=== PATIENT | female | born 1960 | race Caucasian/White ===

== ENCOUNTER → 2016-10-21 | Outpatient (CLI) | payer BC, OTHER ==
--- NOTE | 2016-10-21 08:32 | CT ---
EXAMINATION TYPE: CT soft tissue neck w con DATE OF EXAM: 10/21/2016 8:14 AM COMPARISON: NONE HISTORY: Rt neck swelling CT DLP: 521 mGycm Automated exposure control for dose reduction was used. CONTRAST: CT scan of the neck is performed following with IV Contrast, patient injected with 100 mL of Omnipaqu e 300. Axial images are obtained, coronal and sagittal reformatted images are reviewed. FINDINGS: Nasopharynx is symmetric. There are changes of chronic sinusitis. Arterial palatine fossa is symmetric. Oropharynx symmetric. Dental artifact does limit the exam. Deidra sly the submandibular and parotid glands have a normal appearance. There is no soft tissue edema. Thyroid enhances normally. The lung apices are clear. No pathologic adenopathy. The vocal cords have a normal appearance. IMPRESSION: 1. No acute process
== END | disposition home or self-care (01) ==
LOC: RADCTMAIN 07:31
PROVIDERS: ATTEND Otolaryngology
DX: R22.1 Localized swelling, mass and lump, neck (principal)
CPT/HCPCS: 70491; Q9967

== ENCOUNTER → 2016-12-17 | Outpatient (CLI) | payer BC, OTHER ==
--- NOTE | 2016-12-18 08:22 | MM ---
Reason for exam: screening (asymptomatic). Last mammogram was performed 1 year ago. History: Patient is postmenopausal. Benign left breast needle localization of both breasts, August 25, 2013. Cancelled Left Mammotome of the left breast, August 05, 2013. Physical Findings: A clinical breast exam by your physician is recommended on an annual basis and results should be correlated with mammographic findings. MG Screening Mammo w CAD Bilateral CC and MLO view(s) were taken. Prior study comparison: December 06, 2015, bilateral MG screening mammo w CAD. August 10, 2014, bilateral MG screening mammo w CAD. The breast tissue is heterogeneously dense. This may lower the sensitivity of mammography. There is no discrete abnormality. No significant changes when compared with prior studies. ASSESSMENT: Negative, BI-RAD 1 RECOMMENDATION: Routine screening mammogram of both breasts in 1 year.
== END | disposition home or self-care (01) ==
LOC: RADMAMWWP 07:38
PROVIDERS: ATTEND Obstetrics & Gynecology
DX: Z12.31 Encounter for screening mammogram for malignant neoplasm of breast (principal)

== ENCOUNTER → 2017-12-29 | Outpatient (CLI) | payer BC, OTHER ==
--- NOTE | 2017-12-31 10:10 | MM ---
Reason for exam: screening (asymptomatic). Last mammogram was performed 1 year ago. History: Patient is postmenopausal. Benign left breast needle localization of both breasts, August 25, 2013. Cancelled Left Mammotome of the left breast, August 05, 2013. Physical Findings: A clinical breast exam by your physician is recommended on an annual basis and results should be correlated with mammographic findings. MG Screening Mammo w CAD Bilateral CC and MLO view(s) were taken. Prior study comparison: December 17, 2016, bilateral MG screening mammo w CAD. December 06, 2015, bilateral MG screening mammo w CAD. The breast tissue is heterogeneously dense. This may lower the sensitivity of mammography. No significant changes when compared with prior studies. ASSESSMENT: Negative, BI-RAD 1 RECOMMENDATION: Routine screening mammogram of both breasts in 1 year.
== END | disposition home or self-care (01) ==
LOC: RADMAMWWP 13:31
PROVIDERS: ATTEND Obstetrics & Gynecology
DX: Z12.31 Encounter for screening mammogram for malignant neoplasm of breast (principal)
CPT/HCPCS: 77067

== ENCOUNTER → 2019-01-12 | Outpatient (CLI) | payer BC, OTHER ==
--- NOTE | 2019-01-12 10:19 | MM ---
Reason for exam: screening (asymptomatic). Last mammogram was performed 1 year ago. History: Patient is postmenopausal. Benign left breast needle localization of both breasts, August 25, 2013. Cancelled Left Mammotome of the left breast, August 05, 2013. Physical Findings: A clinical breast exam by your physician is recommended on an annual basis and results should be correlated with mammographic findings. MG Screening Mammo w CAD Bilateral CC and MLO view(s) were taken. Prior study comparison: December 29, 2017, bilateral MG screening mammo w CAD. December 17, 2016, bilateral MG screening mammo w CAD. The breast tissue is heterogeneously dense. This may lower the sensitivity of mammography. No suspicious abnormality. No significant changes when compared with prior studies. ASSESSMENT: Negative, BI-RAD 1 RECOMMENDATION: Routine screening mammogram of both breasts in 1 year.
== END | disposition home or self-care (01) ==
LOC: RADMAMWWP 07:19
PROVIDERS: ATTEND Obstetrics & Gynecology
DX: Z12.31 Encounter for screening mammogram for malignant neoplasm of breast (principal)
CPT/HCPCS: 77067

== ENCOUNTER → 2020-03-22 | Outpatient (CLI) | payer BC, OTHER ==
--- NOTE | 2020-03-24 09:28 | MM ---
Reason for exam: screening (asymptomatic). Last mammogram was performed 1 year and 2 months ago. History: Patient is postmenopausal. Benign left breast needle localization of both breasts, August 25, 2013. Cancelled Left Mammotome of the left breast, August 05, 2013. Physical Findings: A clinical breast exam by your physician is recommended on an annual basis and results should be correlated with mammographic findings. MG Screening Mammo w CAD Bilateral CC and MLO view(s) were taken. Prior study comparison: January 12, 2019, bilateral MG screening mammo w CAD. December 29, 2017, bilateral MG screening mammo w CAD. The breast tissue is heterogeneously dense. This may lower the sensitivity of mammography. Focal asymmetry left upper outer quadrant. No significant changes when compared with prior studies. ASSESSMENT: Benign, BI-RAD 2 RECOMMENDATION: Routine screening mammogram of both breasts in 1 year.
== END | disposition home or self-care (01) ==
LOC: RADMAMWWP 09:30
PROVIDERS: ATTEND Obstetrics & Gynecology
DX: Z12.31 Encounter for screening mammogram for malignant neoplasm of breast (principal)
CPT/HCPCS: 77067

== ENCOUNTER → 2021-05-02 | Outpatient (CLI) | payer BC, OTHER ==
--- NOTE | 2021-05-04 11:40 | MM ---
Reason for exam: screening (asymptomatic). Last mammogram was performed 1 year and 1 month ago. History: Patient is postmenopausal. Benign left breast needle localization of both breasts, August 25, 2013. Cancelled Left Mammotome of the left breast, August 05, 2013. Physical Findings: A clinical breast exam by your physician is recommended on an annual basis and results should be correlated with mammographic findings. MG Screening Mammo w CAD Bilateral CC and MLO view(s) were taken. Prior study comparison: March 22, 2020, bilateral MG screening mammo w CAD. January 12, 2019, bilateral MG screening mammo w CAD. The breast tissue is heterogeneously dense. This may lower the sensitivity of mammography. There is chronic nodularity in the left breast. No significant changes when compared with prior studies. ASSESSMENT: Benign, BI-RAD 2 RECOMMENDATION: Routine screening mammogram of both breasts in 1 year.
== END | disposition home or self-care (01) ==
LOC: RADMAMWWP 16:11
PROVIDERS: ATTEND Obstetrics & Gynecology
DX: Z12.31 Encounter for screening mammogram for malignant neoplasm of breast (principal); Z78.0 Asymptomatic menopausal state
CPT/HCPCS: 77067

== ENCOUNTER → 2022-02-20 | Outpatient (CLI) | payer BC, OTHER ==
--- NOTE | 2022-02-20 09:24 | MM ---
Reason for Exam: Clinical finding. Last screening mammogram was performed 10 month(s) ago. Indicated Problems: Pain of the left side : no pain now. Patient History: Menarche at age 11. First Full-Term at age 25. Postmenopausal. 08/25/2013, Bilateral Benign Excisional Biopsy. 08/05/2013, Cancelled Left Mammotome on the left side. Risk Values: Teena 5 year model risk: 2.0%. NCI Lifetime model risk: 9.0%. Prior Study Comparison: 08/01/1995 Screening Mammogram, Unknown. 12/17/2016 Bilateral Screening Mammogram, [facility]. 12/29/2017 Bilateral Screening Mammogram, [facility]. 01/12/2019 Bilateral Screening Mammogram, [facility]. 03/22/2020 Bilateral Screening Mammogram, [facility]. 05/02/2021 Bilateral Screening Mammogram, [facility]. Tissue Density: The breast tissue is heterogeneously dense. This may lower the sensitivity of mammography. Findings: Analyzed By CAD. No worrisome cluster microcalcifications within either breast. No new suspicious mass. No suspicious abnormality in the patient's region of pain with the left breast. No significant change from prior exams. Overall Assessment: Benign, BI-RAD 2 Management: Screening Mammogram of both breasts in 1 year. A clinical breast exam by your physician is recommended on an annual basis and results should be correlated with mammographic findings. This exam should not preclude additional follow-up of suspicious palpable abnormalities. Results were given to the patient verbally at the time of exam. Electronically signed and approved by: Aroldo Whaley D.O.
--- NOTE | 2022-02-20 09:24 | MM ---
Reason for Exam: Clinical finding. Last screening mammogram was performed 10 month(s) ago. Indicated Problems: Pain of the left side : no pain now. Patient History: Menarche at age 11. First Full-Term at age 25. Postmenopausal. 08/25/2013, Bilateral Benign Excisional Biopsy. 08/05/2013, Cancelled Left Mammotome on the left side. Risk Values: Teena 5 year model risk: 2.0%. NCI Lifetime model risk: 9.0%. Prior Study Comparison: 08/01/1995 Screening Mammogram, Unknown. 12/17/2016 Bilateral Screening Mammogram, [facility]. 12/29/2017 Bilateral Screening Mammogram, [facility]. 01/12/2019 Bilateral Screening Mammogram, [facility]. 03/22/2020 Bilateral Screening Mammogram, [facility]. 05/02/2021 Bilateral Screening Mammogram, [facility]. Tissue Density: The breast tissue is heterogeneously dense. This may lower the sensitivity of mammography. Findings: Analyzed By CAD. No worrisome cluster microcalcifications within either breast. No new suspicious mass. No suspicious abnormality in the patient's region of pain with the left breast. No significant change from prior exams. Overall Assessment: Benign, BI-RAD 2 Management: Screening Mammogram of both breasts in 1 year. A clinical breast exam by your physician is recommended on an annual basis and results should be correlated with mammographic findings. This exam should not preclude additional follow-up of suspicious palpable abnormalities. Results were given to the patient verbally at the time of exam. Electronically signed and approved by: Aroldo Whaley D.O.
== END | disposition home or self-care (01) ==
LOC: RADMAMWWP 08:54
PROVIDERS: ATTEND Obstetrics & Gynecology
DX: R92.8 Other abnormal and inconclusive findings on diagnostic imaging of breast (principal); Z78.0 Asymptomatic menopausal state
CPT/HCPCS: 77062; 77066

== ENCOUNTER → 2023-04-01 | Outpatient (CLI) | payer BC, OTHER ==
--- NOTE | 2023-04-02 09:43 | MM ---
Reason for Exam: Screening (asymptomatic). Last mammogram was performed 1 year(s) and 1 month(s) ago. Patient History: Menarche at age 11. First Full-Term at age 25. Postmenopausal. 08/25/2013, Bilateral Benign Excisional Biopsy. 08/05/2013, Cancelled Left Mammotome on the left side. Risk Values: Teena 5 year model risk: 2.1%. NCI Lifetime model risk: 8.7%. Prior Study Comparison: 12/17/2016 Bilateral Screening Mammogram, [facility]. 12/29/2017 Bilateral Screening Mammogram, [facility]. 01/12/2019 Bilateral Screening Mammogram, [facility]. 03/22/2020 Bilateral Screening Mammogram, [facility]. 05/02/2021 Bilateral Screening Mammogram, [facility]. 02/20/2022 Bilateral MG 3D diag mammo w/cad LYN, [facility]. Tissue Density: The breast tissue is heterogeneously dense. This may lower the sensitivity of mammography. Findings: Analyzed By CAD. There is no suspicious group of microcalcifications or new suspicious mass. Overall Assessment: Negative, BI-RAD 1 Management: Screening Mammogram of both breasts in [address] [facility] will attempt to contact patient to return for supplemental views and ultrasound if indicated. Patient should continue monthly self-breast exams. A clinical breast exam by your physician is recommended on an annual basis. This exam should not preclude additional follow-up of suspicious palpable abnormalities. Note on Teena scores and lifetime risk: 1. A Teena score greater than 3% is considered moderate risk. If this is the case, consider specialist referral to assess eligibility for a risk reducing agent. 2. If overall lifetime risk for the development of breast cancer is 20% or higher, the patient may qualify for future screening with alternating mammogram and breast MRI. Electronically signed and approved by: Oliverio Jensen DO
== END | disposition home or self-care (01) ==
LOC: RADMAMWWP 07:55
PROVIDERS: ATTEND Obstetrics & Gynecology
DX: Z12.31 Encounter for screening mammogram for malignant neoplasm of breast (principal); Z78.0 Asymptomatic menopausal state
CPT/HCPCS: 77063; 77067

== ENCOUNTER → 2024-04-14 | Outpatient (CLI) | payer BC, OTHER ==
--- NOTE | 2024-04-18 03:31 | MM ---
Reason for Exam: Screening (asymptomatic). Last mammogram was performed 1 year(s) and 1 month(s) ago. Patient History: Menarche at age 11. First Full-Term at age 25. Postmenopausal. 08/25/2013, Bilateral Benign Excisional Biopsy. 08/05/2013, Cancelled Left Mammotome on the left side. Risk Values: Teena 5 year model risk: 2.1%. NCI Lifetime model risk: 8.4%. Prior Study Comparison: 05/02/2021 Bilateral Screening Mammogram, [facility]. 02/20/2022 Bilateral MG 3D diag mammo w/cad LYN, [facility]. 04/01/2023 Bilateral MG 3D screening mammo w/cad, [facility]. Tissue Density: The breasts are heterogeneously dense, which may obscure small masses. Findings: Analyzed By CAD. The pattern is symmetrical. No significant interval change No suspicious groups of microcalcifications, spiculated or lobular masses, architectural distortion or other secondary signs of malignancy are mammographically apparent. Overall Assessment: Benign, BI-RAD 2 Management: Screening Mammogram of both breasts in 1 year. A negative mammogram report should not preclude additional follow up of suspicious palpable abnormalities. Patient should continue monthly self breast exam. A clinical breast exam by your physician is recommended on an annual basis and results should be correlated with mammographic findings. Note on Teena scores and lifetime risk: 1. A Teena score greater than 3% is considered moderate risk. If this is the case, consider specialist referral to assess eligibility for a risk reducing agent. 2. If overall lifetime risk for the development of breast cancer is 20% or higher, the patient may qualify for future screening with alternating mammogram and breast MRI. [facility], , 04/18/2024 3:28 AM. Electronically signed and approved by: Marc Malik D.O. Radiologis
== END | disposition home or self-care (01) ==
LOC: RADMAMWWP 09:55
PROVIDERS: ATTEND Obstetrics & Gynecology
DX: Z12.31 Encounter for screening mammogram for malignant neoplasm of breast (principal); Z78.0 Asymptomatic menopausal state; R92.333 Mammographic heterogeneous density, bilateral breasts
CPT/HCPCS: 77063; 77067